=== PATIENT | male | born 1995 | race Caucasian/White ===

== ENCOUNTER 2017-01-20 21:50 | Emergency (ER) | payer BC ==
[~2017-01-20 21:50] MED LIST: ABX PO; ADULT ASPIRIN81 MG PO; ALLERGY RELIEF180 MG PO; BUPROPION XL150 MG PO; DECADRON4 MG PO; HYCODAN SYRUP480 ML PO; NASAL SPRAY; NON-ASPIRIN PA500 MG PO; OLANZAPINE5 M1 PO; PREDNISONE20 M1 PO; PROAIR HFA8.5 GM IH; QVAR7.3 G IH; STRATTERA80 MG PO; VENTOLIN HFA18 GM IH; ZITHROMAX250 M1 PO
== END 2017-01-20 23:05 ==
LOC: EDMED 21:50
DX: K62.5 Hemorrhage of anus and rectum (principal)